=== PATIENT | male | born 2000 | race African-American/Black ===

== ENCOUNTER 2020-10-02 08:56 | Emergency (ER) | payer OTHER ==
[~2020-10-02] VITALS: Ht 167.6 cm; Wt 56.8 kg
[2020-10-02] MEDS ORDERED: ONDANSETRON 4MG/2ML VIAL IV ONE (09:40)
[2020-10-02] MEDS ORDERED: KETOROLAC 30 MG/ML 1ML VIAL IV ONE (09:40)
[2020-10-02] MEDS ORDERED: NS 500 ML IV ONE (09:45)
--- NOTE | 2020-10-02 10:07 | REP ---
INDICATION: diffuse abd pain with bilateral flank pain COMPARISON: None TECHNIQUE: Axial noncontrast images from the lung bases to the pubic symphysis with coronal and sagittal reformations. This CT examination was performed using the following dose reduction techniques: Automated exposure control, adjustment of mA and/or kv according to the patient's size, and use of iterative reconstruction technique. FINDINGS: Lung bases are clear. Visualized heart and pericardium normal. Liver, spleen, pancreas, gallbladder, bilateral adrenal glands and kidneys are normal for noncontrast evaluation. No perinephric stranding, nephrolithiasis or hydroureteronephrosis is identified. The enteric system is limited in evaluation due to lack of contrast opacification and decreased intraperitoneal fat. Moderate fecal stasis and constipation is suggested. No obvious bowel obstruction or focal inflammatory process identified. Normal appendix noted in the right lower quadrant. No free air or ascites. Pelvis demonstrates normal bladder and age-appropriate prostate/seminal vesicles. There is a 9 mm calcification in the right hemipelvis and 2 mm calcification in the left hemipelvis which may represent phleboliths and less likely ureteral calculi as there is no evidence for hydronephrosis or perinephric stranding. However, correlation with urinalysis may be warranted. No ascites. No free air. No adenopathy. No focal inflammatory stranding. Abdominal aorta without aneurysm. Musculoskeletal structures are intact and without acute osseous abnormality. IMPRESSION: 1. Moderate fecal stasis and possible constipation should be correlated clinically. 2. Calcifications in the pelvis as described above without associated hydroureteronephrosis or perinephric stranding. These may represent phleboliths although nonobstructing ureteral calculi cannot be excluded. Correlation with physical examination and urinalysis may be warranted as well as renal/bladder ultrasound if necessary. <Electronically signed by Ricardo Turner > 10/02/20 [id number]
--- NOTE | 2020-10-02 10:16 | REP ---
INDICATION: left sided chest pain, tender to palpation COMPARISON: None. TECHNIQUE: PA and lateral. FINDINGS: The mediastinum and cardiac silhouette are normal. The lung galaviz are clear and without acute consolidation, effusion, or pneumothorax. The skeletal structures are intact and normal. IMPRESSION: No acute cardiopulmonary process. <Electronically signed by Ricardo Turner > 10/02/20 [id number]
[2020-10-02 10:51] LABS: BASO # 0.1 10^3/uL (0.0-0.2); BASO % 1.2 % (0.0-1.0); EOS # 0.5 10^3/uL (0.0-0.5); EOS % 6.5 % (0.0-3.0); HEMATOCRIT 49.2 % (42.0-52.0); HEMOGLOBIN 16.1 g/dl (13.5-17.5); LYMPH # 1.5 10^3/uL (1.5-5.0); LYMPH % 20.1 % (24.0-44.0); MEAN CORPUSCULAR HGB CONC 32.7 g/dl (32.0-36.5); MEAN CORPUSCULAR VOLUME 94.6 fl (80.0-96.0); MONO # 0.6 10^3/uL (0.0-0.8); MONO % 7.6 % (2.0-8.0); NEUTROPHILS # 4.7 10^3/uL (1.5-8.5); NEUTROPHILS % 64.3 % (36.0-66.0); PLATELET COUNT, AUTOMATED 291 10^3/uL (150-450); WHITE BLOOD COUNT 7.4 10^3/uL (4.0-10.0)
[2020-10-02 11:21] LABS: ALT/SGPT 18 U/L (12-78); AMYLASE 125 U/L (25-115); BILIRUBIN,TOTAL 0.6 MG/DL (0.2-1.0); BLOOD UREA NITROGEN 10 MG/DL (7-18); CALCIUM LEVEL 9.3 MG/DL (8.5-10.1); CARBON DIOXIDE LEVEL 28 MEQ/L (21-32); CHLORIDE LEVEL 108 MEQ/L (98-107); CK-MB VALUE MASS 1.1 NG/ML (<3.6); CPK CREATINE PHOSPHOKINASE 230 U/L (39-308); CREATININE FOR GFR 0.98 MG/DL (0.70-1.30); GLUCOSE, FASTING 89 MG/DL (70-100); LIPASE 52 U/L (73-393); MB/CK RELATIVE INDEX 0.48 (< OR =4); POTASSIUM SERUM 4.3 MEQ/L (3.5-5.1); SODIUM LEVEL 142 MEQ/L (136-145); TOTAL PROTEIN 7.7 GM/DL (6.4-8.2); TROPONIN I < 0.02 NG/ML (< 0.10)
--- NOTE | 2020-10-02 12:19 | REP ---
INDICATION: dirty urine, kidney stones? unsure on CT, thank you COMPARISON: None TECHNIQUE: Real time jacinto scale ultrasound examination using curved array transducer. FINDINGS: Bilateral kidneys are normal in contour, size, echogenicity, and reniform shape. No hydronephrosis, nephrolithiasis, cystic or renal mass lesion. Bladder is normal in appearance. Right kidney measures 9.1 x 5.5 x 3.8 cm. Left kidney measures 9.2 x 4.9 x 5.7 cm. IMPRESSION: Normal renal ultrasound. <Electronically signed by Ricardo Turner > 10/02/20 [id number]
[2020-10-02] MEDS ORDERED: CIPR-249 PO (12:42)
[2020-10-02] MEDS ORDERED: NAPR-837 PO (12:42)
[2020-10-02] MEDS ORDERED: CYCL-707 PO (12:42)
[2020-10-02] MEDS ORDERED: COLA100C5 PO (12:43)
[2020-10-02 13:26] VITALS: BP 106/57
--- NOTE | 2020-10-02 20:16 | ECGEPIP ---
[facility] - ED Test Date: 2020-10-02 Pat Name: IFEANYI LAMBERT Department: Room: - Gender: Male Second Vp Hr Assessment: VENECIA : 2000 Requested By: Marleny Henry PA-C ER Order Number: [id number] Reading MD: Blaine Lopez Measurements Intervals [place] Rate: 66 P: 29 HI: 120 QRS: 83 QRSD: 84 T: 58 QT: 394 QTc: 413 Interpretive Statements Normal sinus rhythm Comparison tracing not on file Electronically Signed on 10-02-2020 20:15:48 EDT by Blaine Lopez
--- NOTE | 2020-10-04 08:53 | ED PDOC ---
Post-Departure Follow-Up ct abd/p faxed to claudia martinez for fu Darryl Chase MD October 04, 2020 08:53
== END 2020-10-02 13:36 | disposition home or self-care (01) ==
LOC: M ED 08:56
DX: K59.00 Constipation, unspecified (principal); N39.0 Urinary tract infection, site not specified; K29.70 Gastritis, unspecified, without bleeding; R07.89 Other chest pain; Z88.0 Allergy status to penicillin; F17.210 Nicotine dependence, cigarettes, uncomplicated
CPT/HCPCS: 36415; 71046; 74176; 76775; 80053; 81001; 82150; 82550; 82553; 83690; 84484; 85025; 87086; 93005; 96361; 96374; 96375; 99284; J1885; J2405

== ENCOUNTER 2020-12-24 22:02 | Emergency (ER) | payer OTHER ==
[~2020-12-24] VITALS: Ht 167.6 cm; Wt 60.1 kg
[~2020-12-24 22:02] MED LIST: CIPR-249 PO; COLA100C5 PO; CYCL-707 PO; NAPR-837 PO
--- NOTE | 2020-12-25 05:48 | ECGEPIP ---
[facility] - ED Test Date: 2020-12-24 Pat Name: IFEANYI LAMBERT Department: Room: - Gender: Male Management Planner: EMIL : 2000 Requested By: CRYSTAL Cristina Order Number: [id number] Reading MD: Charlie Veliz Measurements Intervals [place] Rate: 67 P: 66 AR: 120 QRS: 87 QRSD: 88 T: 52 QT: 406 QTc: 429 Interpretive Statements Sinus rhythm with sinus arrhythmia INCOMPLETE RIGHT BUNDLE BRANCH BLOCK SIMILAR TO 10/02/20 Electronically Signed on 12-25-2020 5:48:13 EDT by Charlei Veliz
[2020-12-25] MEDS ORDERED: ONDANSETRON 4 MG ORAL DISINTEGRATING TAB PO ONE (06:50)
[2020-12-25] MEDS ORDERED: ALBUTEROL 90 MCG/ACT 8GM HFA INHALER INH ONE (06:50)
[2020-12-25 07:41] LABS: BASO # 0.1 10^3/uL (0.0-0.2); BASO % 0.8 % (0.0-1.0); EOS # 0.2 10^3/uL (0.0-0.5); EOS % 2.3 % (0.0-3.0); HEMATOCRIT 49.4 % (42.0-52.0); HEMOGLOBIN 16.1 g/dl (13.5-17.5); LYMPH # 1.6 10^3/uL (1.5-5.0); LYMPH % 22.5 % (24.0-44.0); MEAN CORPUSCULAR HEMOGLOBIN 30.4 pg (27.0-33.0); MEAN CORPUSCULAR HGB CONC 32.6 g/dl (32.0-36.5); MEAN CORPUSCULAR VOLUME 93.4 fl (80.0-96.0); MONO # 0.4 10^3/uL (0.0-0.8); MONO % 5.8 % (2.0-8.0); NEUTROPHILS % 68.5 % (36.0-66.0); PLATELET COUNT, AUTOMATED 293 10^3/uL (150-450); RED BLOOD COUNT 5.29 10^6/uL (4.30-6.10); WHITE BLOOD COUNT 7.3 10^3/uL (4.0-10.0)
--- NOTE | 2020-12-25 08:02 | REP ---
INDICATION: chest/upper abd pain. COMPARISON: Comparison study October 02, 2020.. TECHNIQUE: Three views. FINDINGS: Upright chest radiograph is unremarkable. There is no evidence of infiltrate or free subdiaphragmatic air. Heart size is normal. Pulmonary vasculature is not increased. Pleural angles are sharp. EKG monitoring electrodes are seen. Supine and erect views of the abdomen demonstrate a normal bowel gas pattern. The psoas margins and the flank stripes are intact. There is no evidence of mass, organomegaly, or pathologic calcification. There is sacralization of L5. IMPRESSION: Negative acute abdominal series. <Electronically signed by Roman Vega > 12/25/20 [id number]
[2020-12-25 08:17] LABS: ALBUMIN 4.5 GM/DL (3.2-5.2); ALT/SGPT 32 U/L (12-78); BILIRUBIN,TOTAL 0.8 MG/DL (0.2-1.0); BLOOD UREA NITROGEN 9 MG/DL (7-18); CALCIUM LEVEL 9.7 MG/DL (8.5-10.1); CARBON DIOXIDE LEVEL 23 MEQ/L (21-32); CHLORIDE LEVEL 106 MEQ/L (98-107); CK-MB VALUE MASS 1.6 NG/ML (<3.6); CPK CREATINE PHOSPHOKINASE 286 U/L (39-308); CREATININE FOR GFR 1.09 MG/DL (0.70-1.30); GLUCOSE, FASTING 91 MG/DL (70-100); LIPASE 45 U/L (73-393); MB/CK RELATIVE INDEX 0.56 (< OR =4); POTASSIUM SERUM 4.1 MEQ/L (3.5-5.1); SODIUM LEVEL 138 MEQ/L (136-145); TOTAL PROTEIN 8.1 GM/DL (6.4-8.2); TROPONIN I < 0.02 NG/ML (< 0.10)
[2020-12-25] MEDS ORDERED: PEPC1TAB5 PO (08:58)
[2020-12-25 09:02] VITALS: BP 117/67
== END 2020-12-25 09:07 | disposition home or self-care (01) ==
LOC: M ED 22:02
DX: R07.89 Other chest pain (principal); R10.10 Upper abdominal pain, unspecified; R06.02 Shortness of breath; R11.2 Nausea with vomiting, unspecified; Z88.0 Allergy status to penicillin; F17.210 Nicotine dependence, cigarettes, uncomplicated
CPT/HCPCS: 36415; 74021; 80053; 82550; 82553; 83690; 84484; 85025; 85379; 86140; 93005; 94640; 94664; 99284; Q0162

== ENCOUNTER → 2021-05-30 | Outpatient (CLI) | payer OTHER ==
[~2021-05-30] MED LIST changes: +PEPC1TAB5 PO
== END ==
LOC: M LABSMTC 12:58
PROVIDERS: ATTEND Pediatrics
DX: Z11.52 Encounter for screening for COVID-19 (principal); Z20.822 Contact with and (suspected) exposure to COVID-19
CPT/HCPCS: C9803; U0003